=== PATIENT | female | born 1960 | race Caucasian/White ===

== ENCOUNTER → 2019-12-26 | Outpatient (CLI) | payer BC ==
[~2019-12-26] VITALS: Ht 165.1 cm; Wt 58.6 kg
[~2019-12-26] MED LIST: BACLOFEN 10MG T10 MG PO; CEVIMELINE HCL30 MG PO; CLONAZEPAM 1 MG1 M1 PO; CREON DR 24,001 EACH PO; DULOXETINE HCL60 MG PO; EFFER-K 10 MEQ10 ME1 PO; ESTRADIOL 1 MG T1 M1 PO; EVENING PRIMR1000 MG PO; FISH OIL 1,0001 EAC9 PO; FOLIC ACID1 MG PO; FUROSEMIDE 20 M20 MG PO; GABAPENTIN100 MG PO; MAXALT10 MG PO; METHOTREXATE 22.5 M1 PO; NAPROSYN500 M1 PO; PHENERGAN 25 MG25 M1 PO; PRECOSE 50 MG50 M1 PO; RESTASIS1 EACH OPHTHALMIC; TRAMADOL 50 MG50 MG PO; VICTOZA 3-0.6 MG/0.1 SUBQ; VOLTAREN GEL 1100 G1 TOP; XELJANZ XR11 MG PO; ZUPLENZ4 MG PO
[2019-12-26 09:43] VITALS: BP 104/70
--- NOTE | 2019-12-26 10:08 | NUR ---
Pain Clinic Assessment: 1. History of Osteoarthritis: HANDS History of Rheumatoid Arthritis: Hands knees 2. Height: 5 ft. 5 in. 165.1 cm. Weight: 129.2 lb. oz. 58.605 kg. Patient's BMI: 21.5 3. Vital Signs: BP: 104/70 Pulse: 82 Resp: 18 Temp: 02 Sat: 98 ECG Mon: 4. Pain Intensity: 5-7 5. Fall Risk: Dizziness: N Needs help standing or walking: N Fallen in the last 3 months: N Fall risk comments: 6. Patient on Blood Thinner: None 7. History of Hypertension: N 8. Opioid Therapy greater than 6 weeks: N Opiate Contract Signed: 9. Risk Assessment Tool Provided: O-LOW RISK 10. Functional Assessment Tool: 11. Recreational Drug Use: Never Drug Type: Tobacco Use: Never Smoker Tobacco Type: Amount or Packs/day: How Many Years: Alcohol Use: No Frequency: Quant:
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
== END ==
LOC: PAIN 06:50
PROVIDERS: ATTEND Anesthesiology Pain Medicine
DX: M54.32 Sciatica, left side (principal); M19.90 Unspecified osteoarthritis, unspecified site; I65.8 Occlusion and stenosis of other precerebral arteries; G25.81 Restless legs syndrome; F32.9 Major depressive disorder, single episode, unspecified; F41.9 Anxiety disorder, unspecified; Z79.899 Other long term (current) drug therapy

== ENCOUNTER → 2019-12-31 | Outpatient (CLI) | payer BC ==
[~2019-12-31] VITALS: Ht 165.1 cm; Wt 59.0 kg
[2019-12-31 08:46] VITALS: BP 110/76
--- NOTE | 2019-12-31 08:50 | NUR ---
Pain Clinic Assessment: 1. History of Osteoarthritis: HANDS History of Rheumatoid Arthritis: Hands knees 2. Height: 5 ft. 5 in. 165.1 cm. Weight: 130.0 lb. oz. 58.968 kg. Patient's BMI: 21.6 3. Vital Signs: BP: 110/76 Pulse: 82 Resp: 16 Temp: 02 Sat: 100 ECG Mon: 4. Pain Intensity: 4 5. Fall Risk: Dizziness: N Needs help standing or walking: N Fallen in the last 3 months: N Fall risk comments: 6. Patient on Blood Thinner: None 7. History of Hypertension: N 8. Opioid Therapy greater than 6 weeks: N Opiate Contract Signed: 9. Risk Assessment Tool Provided: O-LOW RISK 10. Functional Assessment Tool: 11. Recreational Drug Use: Never Drug Type: Tobacco Use: Never Smoker Tobacco Type: Amount or Packs/day: How Many Years: Alcohol Use: No Frequency: Quant:
== END | disposition home or self-care (01) ==
LOC: PAIN 06:57
PROVIDERS: ATTEND Anesthesiology Pain Medicine
DX: M54.16 Radiculopathy, lumbar region (principal); G89.29 Other chronic pain; Z98.890 Other specified postprocedural states; Z79.899 Other long term (current) drug therapy; Z88.8 Allergy status to other drugs, medicaments and biological substances